=== PATIENT | male | born 1945 | race Hispanic/Latino ===

== ENCOUNTER 2019-02-19 02:50 | Emergency (ER) | payer OTHER ==
[2019-02-19] MEDS ORDERED: DEXAMETHASONE 4 MG TAB ONE (04:31)
[2019-02-19] MEDS ORDERED: ACETAMINOPHEN EXTRA STRENGTH 500 MG TABLET ONE (04:31)
[2019-02-19] MEDS ORDERED: BENZONATATE 100 MG CAPSULE PO ONE (04:31)
== END 2019-02-19 04:43 ==
LOC: EDH 02:50
DX: B34.9 Viral infection, unspecified (principal); I10 Essential (primary) hypertension
CPT/HCPCS: 71046; 87804 ×2; 99285; J8540